=== PATIENT | female | born 1990 | race Caucasian/White ===

== ENCOUNTER 2024-03-02 21:01 | Inpatient (IN) | payer BC, SELFPAY ==
[2024-03-02 16:36] VITALS: BP 123/78
[2024-03-02 16:46] LABS: % Basophils 0.3 % (0-2); % Eosinophils 0.6 % (0-6); % Immature Granulocytes 0.3 % (0-0.5); % Lymphocytes 10.2 % (20.5-51.1); % Monocytes 4.2 % (1.7-9.3); % Neutrophils 84.4 % (42.2-75.2); Absolute Eosinophils 0.1 10^3/uL (0-0.7); Absolute Lymphocytes 1.1 10^3/uL (1.2-3.4); Absolute Monocytes 0.4 10^3/uL (0.1-0.6); Absolute Neutrophils 8.8 10^3/uL (1.4-6.5); Hematocrit 42.8 % (37.0-47.0); Hemoglobin 14.4 g/dL (12.0-16.0); Mean Corp Hgb Conc. 33.6 g/dL (33.0-37.0); Mean Corpuscular Volume 86.1 fL (81.0-99.0); Mean Platelet Volume 10.5 fL (7.4-10.4); Nucleated Red Blood Cells % 0 %; Platelet Count 253 10^3/uL (130-400); Red Blood Cell Count 4.97 10^6/uL (4.20-5.40); Red Cell Dist. Width 13.2 % (11.5-14.5); White Blood Cell Count 10.4 10^3/uL (4.8-10.8)
[2024-03-02 16:53] LABS: HCG, Serum Qualitative Screen Negative
[2024-03-02 17:03] LABS: Troponin I < 0.012 ng/ml
[2024-03-02 17:10] LABS: ALT (SGPT) 732 U/L (0-35); AST (SGOT) 763 U/L (14-36); Albumin 4.7 g/dl (3.5-5.0); Alkaline Phosphatase 162 U/L (38-126); Blood Urea Nitrogen 13 mg/dl (7-17); Calcium 9.3 mg/dl (8.4-10.2); Carbon Dioxide 20 mmol/L (22-30); Chloride 106 mmol/L (98-107); Glucose 119 mg/dl (70-99); Potassium 4.1 mmol/L (3.5-5.1); Sodium 138 mmol/L (135-145); Total Bilirubin 3.2 mg/dl (0.2-1.3); Total Protein 7.7 g/dl (6.3-8.2); eGFR > 60.00
--- NOTE | 2024-03-02 17:26 | ED.GENMED ---
History of Present Illness
<Lavinia Nam PA-C - Last Filed: 03/03/24 10:02>
General
Chief Complaint: Abdominal Symptoms
Source: patient
Time Seen by Provider: 03/02/24 17:15
History of Present Illness
History of Present Illness:
33yoF with no significant past medical history presenting for evaluation of abdominal pain. Patient started with mid back pain yesterday. She was seen by her chiropractor around 3 PM this afternoon. Shortly after going to the chiropractor, her
pain began to radiate to her anterior abdomen. Pain is worse in the epigastric region. She is also having some bilateral rib pain. She reports nausea and had 3 episodes of vomiting prior to arrival. She has had similar pains in the past but none
that have been this severe. No fevers. No previous abdominal surgeries.
Past History
<Lavinia Nam PA-C - Last Filed: 03/03/24 10:02>
Past History
ED Past Medical History: None
ED Past Surgical History: None
Social History
Tobacco: Former smoker
Alcohol: Occasional
Personal:
Living: with family
Phy Exam
<Lavinia Nam PA-C - Last Filed: 03/03/24 10:02>
General Physical Exam
General Presentation: well appearing and no apparent distress
General age: appears stated age
General Skin: warm and dry
General Habitus: normal
General Mental: alert
ENT Exam
ENT Exam: normocephalic
Cardiovascular Exam
Cardiovascular Exam: regular rate/rhythm and no murmur
Pulmonary Exam
Pulmonary Exam: lungs clear, no respiratory distress, no rales, no crackles and no rhonchi
Gastrointestinal Exam
Gastrointestinal Exam: soft, non distended and other (+Tenderness in epigastric and LUQ regions. No guarding or rebound tenderness. )
Neurological Exam
Neurological Exam: alert
[place] Coma Scale
Eye Opening: Spontaneous
Verbal Response: Oriented
Motor Response: Obeys Commands
GCS Total Score: 15
Skin Exam
Skin Exam: normal color and warm/dry
Psychiatric Exam
Psychiatric Exam: normal mood/affect
<Pablo Elizabeth PA-C - Last Filed: 03/02/24 20:07>
[place] Coma Scale
GCS Total Score: 15
Course
<Lavinia Nam PA-C - Last Filed: 03/03/24 10:02>
Orders/Labs/Results
Orders:
Orders
03/02/24 15:52
EKG [Electrocardiogram (*1)] Urgent
Reason for Study: Chest Pain
EKG- Treatment ONCE
03/02/24 16:16
Test Result ONCE
03/02/24 16:30
Complete Blood Count/With Diff Urgent
Comprehensive Metabolic Panel Urgent
HCG, Serum Qualitative Screen Urgent
Iron Urgent
Comment: ADD ON
Lipase Urgent
Magnesium Urgent
Comment: ADD ON
Total Iron Binding Urgent
Comment: ADD ON
Transferrin [S] Urgent
Comment: ADD ON
Triglycerides Urgent
Comment: ADD ON
Troponin I Urgent
03/02/24 17:22
CT Abd/pelvis W Iv Cont Urgent
Comment:
Reason For Exam: Epigastric pain, transaminitis
03/02/24 17:24
0.9% Sodium Chloride 1000 ml [Nss] 1,000 ml IV BOLUS
HYDROmorphone [Dilaudid] 0.5 mg IV NOW STA
Ondansetron Injectable [Zofran] 4 mg IV NOW STA
03/02/24 18:55
HYDROmorphone [Dilaudid] 0.5 mg IV NOW STA
03/02/24 20:32
Add On- LAB Routine
Tests Added?: Iron, TIBC, Iron % saturation, Transferrin
03/02/24 20:34
Add On- LAB Routine
Tests Added?: triglycerides
03/02/24 20:40
Admit/Transfer Patient As Directed
Co-Sign Provider:
Level of Care: Inpatient admission
Assign to:: Telemetry
Physician / Group: Marci Graf
Diagnosis: Acute Pancreatitis
Reason for Telemetry: Chest Pain syndromes
Date to Stop Telemetry: 03/04/24
Time to Stop Telemetry: 11:00
Reason for Hospitalization: Acute Pancreatitis
Expected length of stay greater than two midnights?: Yes
ELOS- Estimated Length of Stay in days: 3
I certify the patient meets the requirements for IP care: Yes
0.9% Sodium Chloride 500 ml [Nss] 500 ml IV BOLUS
03/02/24 20:41
Add On- LAB Routine
Tests Added?: Magnesium
Code Status As Directed
Resuscitation Status: Full Code
PRN Pain Medication Management As Directed
May give lesser potent ordered pain med per pt: Yes
preference::
Protocol:: Medication orders for pain may be administered in a
manner that supports deferring to patient preference
when the pt is:
- Requesting an ordered lesser potent pain medication.
Least to most potent pain medications are defined
as: acetaminophen < NSAID < tramadol < opioids
(morphine, oxycodone, hydromorphone).
- Requesting a lesser dose of the same medication IF
ORDERED.
- Requesting a less intrusive route of administration
if both routes are prescribed by the provider (PO <
IV).
03/02/24 21:26
0.9% Sodium Chloride 1000 ml [Nss] 1,000 ml IV 150 mls/hr
Acetaminophen [Tylenol] 650 mg PO Q4HPRN PRN
HYDROmorphone [Dilaudid] 0.5 mg IV Q3HPRN PRN
03/02/24 21:26
GASTROINTESTINAL CONSULT Routine
Consulting Provider: Spike Nagy
Was physician already notified: Yes
Activity As Directed
Activity Level: As Tolerated
Vital Signs As Directed
Frequency: Per unit guidelines
DX Deep Vein Thrombosis Video Routine
03/03/24 05:18
Complete Blood Count/With Diff IN AM
Comprehensive Metabolic Panel IN AM
Magnesium IN AM
03/03/24 Breakfast
NPO
Allow oral meds: Yes
Allow clear liquids: No
MR Abdomen Without Contrast IN AM
Comment: MRCP
Reason For Exam: elevated liver enzymes, pancreatitis
Recent pill cam endoscopy?: No
03/03/24 18:00
Enoxaparin Sodium [Lovenox] 40 mg SC QPM
03/04/24 11:00
DC Protocol for Telemetry ONCE
Abnormal Lab Results
03/02/24
16:30
MPV 10.5 H fL
(7.4-10.4)
Absolute Neuts (auto) 8.8 H 10^3/uL
(1.4-6.5)
Absolute Lymphs (auto) 1.1 L 10^3/uL
(1.2-3.4)
Neutrophils % 84.4 H %
(42.2-75.2)
Lymphocytes % 10.2 L %
(20.5-51.1)
Carbon Dioxide 20 L mmol/L
(22-30)
Glucose 119 H mg/dl
(70-99)
Iron 177 H ug/dl
(37-170)
% Saturation 56 H %
(20-50)
Total Bilirubin 3.2 H mg/dl
(0.2-1.3)
AST 763 H* U/L
(14-36)
ALT 732 H* U/L
(0-35)
Alkaline Phosphatase 162 H U/L
(38-126)
Lipase > 4000 H* U/L
(23-300)
03/02/24 16:30
03/02/24 16:30
Vital Signs
Initial and Last Documented VS:
Initial Vital Signs
Temp Pulse Resp Pulse Ox
97.6 F 100 18 98
03/02/24 16:11 03/02/24 16:11 03/02/24 16:11 03/02/24 16:11
Last Documented Vital Signs
Temp Pulse Resp BP Pulse Ox
98.3 F 96 17 119/77 95
03/03/24 07:55 03/03/24 07:55 03/03/24 07:55 03/03/24 07:55 03/03/24 07:55
<Pablo Elizabeth PA-C - Last Filed: 03/02/24 20:07>
Orders/Labs/Results
Orders:
Orders
03/02/24 15:52
EKG [Electrocardiogram (*1)] Urgent
Reason for Study: Chest Pain
EKG- Treatment ONCE
03/02/24 16:16
Test Result ONCE
03/02/24 16:30
Complete Blood Count/With Diff Urgent
Comprehensive Metabolic Panel Urgent
HCG, Serum Qualitative Screen Urgent
Iron Urgent
Comment: ADD ON
Lipase Urgent
Magnesium Urgent
Comment: ADD ON
Total Iron Binding Urgent
Comment: ADD ON
Transferrin [S] Urgent
Comment: ADD ON
Triglycerides Urgent
Comment: ADD ON
Troponin I Urgent
03/02/24 17:22
CT Abd/pelvis W Iv Cont Urgent
Comment:
Reason For Exam: Epigastric pain, transaminitis
03/02/24 17:24
0.9% Sodium Chloride 1000 ml [Nss] 1,000 ml IV BOLUS
HYDROmorphone [Dilaudid] 0.5 mg IV NOW STA
Ondansetron Injectable [Zofran] 4 mg IV NOW STA
03/02/24 18:55
HYDROmorphone [Dilaudid] 0.5 mg IV NOW STA
03/02/24 20:32
Add On- LAB Routine
Tests Added?: Iron, TIBC, Iron % saturation, Transferrin
03/02/24 20:34
Add On- LAB Routine
Tests Added?: triglycerides
03/02/24 20:40
Admit/Transfer Patient As Directed
Co-Sign Provider:
Level of Care: Inpatient admission
Assign to:: Telemetry
Physician / Group: Marci Graf
Diagnosis: Acute Pancreatitis
Reason for Telemetry: Chest Pain syndromes
Date to Stop Telemetry: 03/04/24
Time to Stop Telemetry: 11:00
Reason for Hospitalization: Acute Pancreatitis
Expected length of stay greater than two midnights?: Yes
ELOS- Estimated Length of Stay in days: 3
I certify the patient meets the requirements for IP care: Yes
0.9% Sodium Chloride 500 ml [Nss] 500 ml IV BOLUS
03/02/24 20:41
Add On- LAB Routine
Tests Added?: Magnesium
Code Status As Directed
Resuscitation Status: Full Code
PRN Pain Medication Management As Directed
May give lesser potent ordered pain med per pt: Yes
preference::
Protocol:: Medication orders for pain may be administered in a
manner that supports deferring to patient preference
when the pt is:
- Requesting an ordered lesser potent pain medication.
Least to most potent pain medications are defined
as: acetaminophen < NSAID < tramadol < opioids
(morphine, oxycodone, hydromorphone).
- Requesting a lesser dose of the same medication IF
ORDERED.
- Requesting a less intrusive route of administration
if both routes are prescribed by the provider (PO <
IV).
03/02/24 21:26
0.9% Sodium Chloride 1000 ml [Nss] 1,000 ml IV 150 mls/hr
Acetaminophen [Tylenol] 650 mg PO Q4HPRN PRN
HYDROmorphone [Dilaudid] 0.5 mg IV Q3HPRN PRN
03/02/24 21:26
GASTROINTESTINAL CONSULT Routine
Consulting Provider: Spike Nagy
Was physician already notified: Yes
Activity As Directed
Activity Level: As Tolerated
Vital Signs As Directed
Frequency: Per unit guidelines
DX Deep Vein Thrombosis Video Routine
03/03/24 05:18
Complete Blood Count/With Diff IN AM
Comprehensive Metabolic Panel IN AM
Magnesium IN AM
03/03/24 Breakfast
NPO
Allow oral meds: Yes
Allow clear liquids: No
MR Abdomen Without Contrast IN AM
Comment: MRCP
Reason For Exam: elevated liver enzymes, pancreatitis
Recent pill cam endoscopy?: No
03/03/24 18:00
Enoxaparin Sodium [Lovenox] 40 mg SC QPM
03/04/24 11:00
DC Protocol for Telemetry ONCE
Abnormal Lab Results
03/02/24
16:30
MPV 10.5 H fL
(7.4-10.4)
Absolute Neuts (auto) 8.8 H 10^3/uL
(1.4-6.5)
Absolute Lymphs (auto) 1.1 L 10^3/uL
(1.2-3.4)
Neutrophils % 84.4 H %
(42.2-75.2)
Lymphocytes % 10.2 L %
(20.5-51.1)
Carbon Dioxide 20 L mmol/L
(22-30)
Glucose 119 H mg/dl
(70-99)
Iron 177 H ug/dl
(37-170)
% Saturation 56 H %
(20-50)
Total Bilirubin 3.2 H mg/dl
(0.2-1.3)
AST 763 H* U/L
(14-36)
ALT 732 H* U/L
(0-35)
Alkaline Phosphatase 162 H U/L
(38-126)
Lipase > 4000 H* U/L
(23-300)
03/02/24 16:30
03/02/24 16:30
Vital Signs
Initial and Last Documented VS:
Initial Vital Signs
Temp Pulse Resp Pulse Ox
97.6 F 100 18 98
03/02/24 16:11 03/02/24 16:11 03/02/24 16:11 03/02/24 16:11
Last Documented Vital Signs
Temp Pulse Resp BP Pulse Ox
98.3 F 96 17 119/77 95
03/03/24 07:55 03/03/24 07:55 03/03/24 07:55 03/03/24 07:55 03/03/24 07:55
Anthonylt;Lavinia Nam PA-C - Last Filed: 03/03/24 10:02>
MDM/Problems Addressed
Differential Diagnosis Includes:
33yoF here with abd pain. Started with mid back pain yesterday. Now with anterior abd pain x 2 hours since going to the chiropractor. +N/V. She is afebrile and hemodynamically stable. She appears uncomfortable but is nontoxic. No signs of
peritonitis on abdominal exam. Differential diagnosis includes but is not limited to: Pancreatitis, biliary colic, cholecystitis, choledocholithiasis, PUD
Initial ED plan: Abdominal labs and troponin/EKG obtained in triage. Lipase greater than 4000. AST 763, ALT 732, and T. bili 3.2. High suspicion for gallstone pancreatitis. Will obtain CT abdomen. IV Dilaudid and fluid bolus for symptoms.
<Lavinia Nam PA-C - Last Filed: 03/03/24 10:02>
*EKG
Interpreted by ED Provider?: Yes
EKG Intrepretation Date: 03/02/24
Heart Rate: 100
Rate: normal
Rhythm: sinus
Senoia: normal axis
Interval: normal interval
QRS Pattern: normal QRS
Ischemia: no ischemia
<Pablo Elizabeth PA-C - Last Filed: 03/02/24 20:07>
*Critical Care Note
Total Time (30-74mins, 75-104mins- exclusive of procedures): Not Applicable
<Pablo Elizabeth PA-C - Last Filed: 03/02/24 20:07>
Update Note
Update Note:
Assumed care of patient pending CT of abdomen. CT demonstrates pancreatitis with small amount of fluid around the gallbladder likely reactive from the pancreatitis. Labs reviewed with lipase more than 4000 and elevated LFTs. Reexamined patient.
She just received some pain medicine and is feeling slightly improved. Will admit to hospital for pancreatitis possible gallstone pancreatitis
ED Attending Note
<Lavinia Nam PA-C - Last Filed: 03/03/24 10:02>
-
Portions of this chart may have been created with voice recognition software.� Occasional wrong word or��sound alike� substitutions may have occurred due to the inherent limitations of voice recognition software.
Discharge Plan
Departure
Patient Disposition: Admit
Date of Disposition: 03/02/24
Time of Disposition: 20:06
Admit to: Med/Surg
Presentation/result/management discussed w/ accepting MD/DO: Hospitalist
Discharge Problem:
Pancreatitis
Interventions
Interventions:
*Risk Screen - Suicide Last Done: 03/02/24 16:11
*General Assessment Last Done: 03/02/24 16:11
*Neglect/Abuse Screening Last Done: 03/02/24 16:11
ED- Fall Risk Assessment Last Done: 03/02/24 16:37
*ED COVID-19 Vaccine History Last Done: 03/02/24 16:11
*Nursing Disposition Last Done: 03/02/24 21:28
NQ-Ddrwow-Vzthwibqei Assessment Last Done: 03/02/24 16:37
Discharge Date and Time
Discharge Date/Time: 03/02/24 21:30
[2024-03-02] MEDS: NSS 1000 IV ×2 (17:32→22:00)
[2024-03-02] MEDS: ZOFRAN 4 MG IV (17:32)
[2024-03-02] MEDS: DILAUDID 0.5 MG IV ×3 (17:32→23:38)
[2024-03-02 17:59] LABS: Lipase > 4000 U/L (23-300)
[2024-03-02 20:00] VITALS: BP 116/76
--- NOTE | 2024-03-02 20:18 | HPS.HSE ---
Family Physician
-
Family Physician: NOT KNOW UNKNOWN - PT DOES
Chief Complaint
-
abdominal pain
History of Present Illness
Ms. Paulina Smith is a 33 yo woman without significant history who is presenting to the ER for evaluation of abdominal pain.
Patient states that over past year she has intermittent back pain that sometimes radiates to abdomen/ribs. It is not associated with eating. Today she saw her Chiropractor who performed manipulation including massage gun to mid-epigastric region.
Patient states post appointment she had significant pain. She vomited several times and decided to come to the ER.
No fevers/chills. No chest pain. Intermittent shortness of breath with pain, pain with deep breaths. No new rash, no LE swelling.
No smoking and denies significant alcohol use.
Medical History
Past Medical History
Past Medical History: Reports None
Past Surgical History: Reports None
Social History
Tobacco: Non-smoker
Alcohol: Occasional
Family History
Family History: Not pertinent
Allergies / Home Medications
Allergies reflects when Allergies were last updated in [employer] [facility].
Home Medications with original date entered in [employer] [facility]
Allergy/Medication List:
Allergies
Allergy/AdvReac Type Severity Reaction Status Date / Time
No Known Drug Allergies Allergy Unknown Verified 03/02/24 16:15
Home Medications
No Meds [No Current Medications] 03/02/24
Review of Systems
-
History Source: Patient
A 12 point ROS was completed and negative except as noted: Yes
Physical Exam
Vital Signs
Vital Signs
Temp Pulse Resp BP Pulse Ox
97.6 F 89 16 123/78 100
03/02/24 16:11 03/02/24 16:36 03/02/24 18:00 03/02/24 16:36 03/02/24 16:36
Physical Exam
General: No Apparent Distress and Conversant
HEENT: PERRLA
Respiratory: Clear; No Wheezes
Cardiac: S1/S2 and Regular Rhythm
GI: Other (tenderness to palpation, mid-epigastric region, non-distended )
Musculoskeletal: No Edema
Skin: Warm and Dry; No Rash
Neuro: AO x 3
Psych: Calm
Laboratory Results
-
03/02/24 16:30
03/02/24 16:30
Laboratory Results
Total Bilirubin 3.2 mg/dl (0.2-1.3) H 03/02/24 16:30
AST 763 U/L (14-36) H* 03/02/24 16:30
ALT 732 U/L (0-35) H* 03/02/24 16:30
Alkaline Phosphatase 162 U/L (38-126) H 03/02/24 16:30
Troponin I < 0.012 ng/ml 03/02/24 16:30
Lipase > 4000 U/L (23-300) H* 03/02/24 16:30
Data Reviewed
-
Diagnostic Radiology: Report Reviewed by me
Lab Data: Labs Reviewed by me
Impression/Plan
-
Ms. Paulina Smith is a 33 yo woman without significant history who is presenting to the ER for evaluation of abdominal pain.
Triage VS: T 97.6, P 100,RR 18, SpO2 98%
LABS: WBC 10.4, Hg 14.1, PLT 253, Na 138, K+ 4.1, Cl 106, CO2 20, Creatinine 0.7, Glucose 119, T. Bili 3.2, AST 763, ALT 732, Alk Phos 162, Trop neg, Lipase > [address]: IMPRESSION:
Pancreatitis
Bile Ducts: no bile duct dilatation
MAR: IV Dilaudid 0.5mg x 2, NS 1L, IV Zofran 4mg IV x 1
Acute Pancreatitis
Elevated Liver Enzymes
-although liver enzymes elevated, liver and biliary ducts normal on CT. patient reports massage gun to epigastric area right before onset of symptoms, but doubt massage gun can cause traumatic pancreatitis?
-admit to telemetry
-IVF
-NPO
-pain control
-GI consult
-MRI/MRCP tomorrow AM
Family Hx Hemochromatosis - strong
-follow up iron studies
DVT PPx: Lovenox subQ
FULL CODE
[2024-03-02 20:46] LABS: Triglycerides 147 mg/dl (10-149)
[2024-03-02 20:54] LABS: Iron 177 ug/dl (37-170)
[2024-03-02] MEDS: NSS 500 IV (20:57)
[2024-03-02 21:03] LABS: Percent Saturation 56 % (20-50); Total Iron Binding Capacity 315 ug/dl (265-497)
[2024-03-02 21:10] LABS: Magnesium 2.1 mg/dl (1.6-2.3)
[2024-03-02 21:48] VITALS: BP 131/85; BMI 38.5
--- NOTE | 2024-03-02 22:00 | PTCARENOTE ---
Received patient from ED via stretcher, Telemetry order> NSR on the monitor, afebrile, HR 85, RR 16, BP 131/85, pox 99% room air. No c/o pain- IV Dilaudid administer x2 in ED. Patient AAOx3. PMH reviewed by this RN and patient. Plan of care
discussed. Patient ordered MRI/MRCP in the morning. Call jeffrey within reach.
[2024-03-02 23:56] VITALS: BP 111/63
[2024-03-03 03:49] VITALS: BP 136/73
[2024-03-03] MEDS: NSS 1000 IV (04:04)
[2024-03-03 05:37] LABS: % Basophils 0.2 % (0-2); % Eosinophils 0.6 % (0-6); % Immature Granulocytes 0.4 % (0-0.5); % Lymphocytes 12.7 % (20.5-51.1); % Monocytes 4.4 % (1.7-9.3); % Neutrophils 81.7 % (42.2-75.2); Absolute Eosinophils 0.1 10^3/uL (0-0.7); Absolute Lymphocytes 1.3 10^3/uL (1.2-3.4); Absolute Monocytes 0.4 10^3/uL (0.1-0.6); Absolute Neutrophils 8.2 10^3/uL (1.4-6.5); Hematocrit 36.3 % (37.0-47.0); Hemoglobin 12.1 g/dL (12.0-16.0); Mean Corp Hgb Conc. 33.3 g/dL (33.0-37.0); Mean Corpuscular Hgb 28.9 pg (27.0-31.0); Mean Corpuscular Volume 86.8 fL (81.0-99.0); Mean Platelet Volume 10.2 fL (7.4-10.4); Nucleated Red Blood Cells % 0 %; Platelet Count 212 10^3/uL (130-400); Red Blood Cell Count 4.18 10^6/uL (4.20-5.40); Red Cell Dist. Width 13.6 % (11.5-14.5)
[2024-03-03 06:10] LABS: ALT (SGPT) 541 U/L (0-35); AST (SGOT) 331 U/L (14-36); Albumin 3.5 g/dl (3.5-5.0); Alkaline Phosphatase 159 U/L (38-126); Blood Urea Nitrogen 10 mg/dl (7-17); Carbon Dioxide 21 mmol/L (22-30); Chloride 108 mmol/L (98-107); Estimated Creatinine Clearance > 125 ml/min; Glucose 92 mg/dl (70-99); Potassium 4.1 mmol/L (3.5-5.1); Sodium 137 mmol/L (135-145); Total Bilirubin 1.3 mg/dl (0.2-1.3); Total Protein 6.1 g/dl (6.3-8.2); eGFR > 60.00
--- NOTE | 2024-03-03 06:37 | CON.GI ---
Addendum entered and electronically signed by Spike Nagy MD 03/03/24 16:20:
I saw and examined the patient.
The SPECIAL EDUCATION PRESCHOOL TEACHER or PA's note was reviewed and I agree with the note.
Comment: 33yo female presents with 1 day severe sudden onset epigastric pain. She had back pain before this episode and was seen chiropractor yesterday, and used massage gun on epigastric area. Lipase 4000, and LFTs elevated AST 763, ALT 732, TB
3.2. CRP 24. She denies EtOH. She has been taking motrin several times daily for her back pain. CT shows pancreatitis. MRCP also shows severe pancreatitis with severe edema, peripancreatic edema and fluid, extensive cholelithiasis but no CBD
stone.
REC:
Aggressive IVF
She is feeling better and wants to try clears for dinner
Follow up labs
Could be passed gallstone in CBD
Add on ASHISH, IgG4 for completeness
Will follow
Original Note:
Consultation
-
Date/Time Consultation Requested: 03/02/242119
Date/Time Consultation Performed: 03/03/24 0700
Requesting Provider: Marci Graf MD
Performing Provider: ZEHRA Dinero, Spike Nagy MD
Reason for Consultation: pancreatitis
Medical History
Chief Complaint / HPI
Chief Complaint: abdominal pain
History of Present Illness:
Pt is a 33yo with admission with gestational diabetes with vaginal childbirth in 2022. She admits to intermittent mild abd/back pain since that time with PRN Motrin use. She was in ER 11/2022 with similar pain with CT noted constipation and non
obstructing renal calculi and normal LFT's at that time. She admits on 03/02 she had followup with chiropractor for continued back pain and some muscle gun to abdominal pain with onset of severe pain after treatment. On admission noted with bili
3.2, AST 763, alt 732 alk phos 162 and lipase >4000. TG normal at [address] completed with concern for pancreatitis with small amount of fluid adjacent to gallbladder no duct dilatation.
Pt admits to some wt loss with now some gain. She also has occasional TRISTIN with Pepcid use as needed. She had nausea/vomiting prior to admission but denies hematemesis, diarrhea, constipation or rectal bleeding. No prior
EGD/colonoscopy in past. Denies ETOH use. No chronic meds just Pepcid and Motrin PRN use.
Past Medical History
Past Medical History: Other (gestational diabetes )
Social History
Tobacco: Non-Smoker
Alcohol: None
Drug: None
Personal:
Living: With Family
Employment: Employed
Family History
Family History: Other (mother with hx hemochromatosis )
Allergies / Home Medications
Allergy/AdvReac Type Severity Reaction Status Date / Time
No Known Drug Allergies Allergy Unknown Verified 03/02/24 16:15
�Medication �Instructions �Recorded
No Meds [No Current Medications] 03/02/24
Review of Systems
-
History Source: Patient
Constitutional: Reports Weight Gain, Weight Loss (with 2022 then gain) and Other (sweats )
EENT: Reports No Symptoms
Respiratory: Reports No Symptoms
Cardiac: Reports No Symptoms
Abdomen/GI: Reports Abdominal Pain, Nausea and Vomiting
: Reports No Symptoms
Musculoskeletal: Reports Other (back pain )
Skin: Reports No Symptoms
Neurological: Reports No Symptoms
Endocrine: Reports No Symptoms
Hematologic/Lymphatic: Reports No Symptoms
Vital Signs
Temp Pulse Resp BP Pulse Ox
98.2 F 83 16 136/73 97
03/03/24 03:49 03/03/24 03:49 03/03/24 03:49 03/03/24 03:49 03/03/24 03:49
Physical Exam
Exam
General: Well Developed, Well Nourished and No Apparent Distress
HEENT: Normocephalic, Anicteric and Moist Mucous Membranes
Respiratory: Clear
Cardiac: Regular Rhythm
GI: Soft, Non Distended and Tender (epigastric pain )
Musculoskeletal: No Clubbing and No Cyanosis
Skin: Warm and Dry
Neuro: Awake, Alert and AO x 3
Psych: Calm
Results
WBC 10.0 10^3/uL (4.8-10.8) 03/03/24 05:18
Hgb 12.1 g/dL (12.0-16.0) 03/03/24 05:18
Hct 36.3 % (37.0-47.0) L 03/03/24 05:18
MCV 86.8 fL (81.0-99.0) 03/03/24 05:18
Plt Count 212 10^3/uL (130-400) 03/03/24 05:18
Absolute Neuts (auto) 8.2 10^3/uL (1.4-6.5) H 03/03/24 05:18
Sodium 137 mmol/L (135-145) 03/03/24 05:18
Potassium 4.1 mmol/L (3.5-5.1) 03/03/24 05:18
Chloride 108 mmol/L (98-107) H 03/03/24 05:18
Carbon Dioxide 21 mmol/L (22-30) L 03/03/24 05:18
BUN 10 mg/dl (7-17) 03/03/24 05:18
Creatinine 0.6 mg/dL (0.6-1.0) 03/03/24 05:18
Calcium 8.0 mg/dl (8.4-10.2) L 03/03/24 05:18
Total Bilirubin 1.3 mg/dl (0.2-1.3) D 03/03/24 05:18
AST 331 U/L (14-36) H 03/03/24 05:18
ALT 541 U/L (0-35) H* 03/03/24 05:18
Alkaline Phosphatase 159 U/L (38-126) H 03/03/24 05:18
Lipase > 4000 U/L (23-300) H* 03/02/24 16:30
Diagnostic Image Results:
03/02/24 CT Abd/pelvis W Iv Cont
Pancreatitis.
11/2022 CT Abd/pel Without Iv Or Oral
There is a large amount of feces throughout colon suggesting possible constipation
There is a 1.5 mm nonobstructing right renal calculus
There are no obstructing renal or ureteral calculi.
There is no hydronephrosis or hydroureter.
Prior GI Procedures:
EGD: none
Colonoscopy: none
Assessment / Plan
-
Pt is a 33yo with admission with gestational diabetes with vaginal childbirth in 2022. She admits to intermittent mild abd/back pain since that time with PRN Motrin use. She was in ER 11/2022 with similar pain with CT noted constipation and non
obstructing renal calculi and normal LFT's at that time. She admits on 03/02 she had followup with chiropractor for continued back pain and some muscle gun to abdominal pain with onset of severe pain after treatment. On admission noted with bili
3.2, AST 763, alt 732 alk phos 162 and lipase >4000. CT completed with concern for pancreatitis with small amount of fluid adjacent to gallbladder no duct dilatation. Denies ETOH use. No chronic meds just Pepcid and Motrin PRN use.
-pancreatitis - first episode
-elevated LFT's
-family hx hemochromatosis
PLAN:
Etiology of symptoms related to pancreatitis secondary to gallstone disease vs other, TG normal 147 on admission
await MRCP
trend labs- some improvement today
add CRP
if MRI need consider IGG4 testing
if + stone then will need ERCP and surgical eval
cont aggressive IVF will change to LR at 200ml/hr
pain control
OP testing for hemochromatosis given family hx iron 177, TIBC 315, iron sat 56, transferritin pending-- pt educated on disease process
will follow
-
-
Thank you for consultation and allowing me to participate in the patient's care. Please call the refrigeration mechanic helper GI physician during the after hours with any questions or concerns.
[2024-03-03 07:55] VITALS: BP 119/77
--- NOTE | 2024-03-03 09:04 | W.PN.HOSP.TC ---
Today's Communication/Plan
-
IV fluids. Pain control. MRCP
Assessment / Plan
Assessment / Plan
Physical exam:
General: Well Developed, Well Nourished and No Apparent Distress
HEENT: Normocephalic, Atraumatic and Moist Mucous Membranes
Respiratory: Clear to Auscultation; Negative Wheezes, Rales or Rhonchi
Cardiac: Regular Rhythm and S1/S2
GI: Soft, Tender and Nondistended
Musculoskeletal: No Clubbing, No Cyanosis and No Edema
Neuro: Awake, Alert and Oriented
Psych: Calm
A/P:
Acute pancreatitis:
Workup in progress for etiology
Continue n.p.o.
Continue IV fluid
Pain control
GI consult appreciated
MRCP pending
Workup for hemochromatosis:
Check ferritin level
Outpatient genetic testing
DVT PPx: Lovenox subQ
FULL CODE
Anticipated Discharge: Within 24 hours
Subjective/Interval History
-
Date of Service: March 03, 2024
Patient still having abdominal pain but better. No nausea or vomiting. Afebrile
Objective Data
-
Labs:
Laboratory Results
03/03/24
05:18
WBC 10.0
Hgb 12.1
Hct 36.3 L
Plt Count 212
Sodium 137
Potassium 4.1
Chloride 108 H
Carbon Dioxide 21 L
BUN 10
Creatinine 0.6
Glucose 92
Calcium 8.0 L
Total Bilirubin 1.3 D
AST 331 H
ALT 541 H*
Alkaline Phosphatase 159 H
Vital Signs:
Vital Signs
Temp Pulse Resp BP Pulse Ox
98.3 F 96 17 119/77 95
03/03/24 07:55 03/03/24 07:55 03/03/24 07:55 03/03/24 07:55 03/03/24 07:55
I&O
03/02/24 03/03/24 03/04/24
06:59 06:59 06:59
Intake Total 1350 / 1350
Balance 1350 / 1350
[2024-03-03 11:05] VITALS: BP 113/73
[2024-03-03] MEDS: LR 1000 IV ×3 (11:55→21:16)
[2024-03-03 14:39] VITALS: BP 113/71
[2024-03-03] MEDS: LOVENOX 40 MG SC (17:16)
--- NOTE | 2024-03-03 17:34 | CM ---
Alert awake oriented patient who lives with her Stevo and dgt Reina who lives in a 2 story home with 3 steps to enter and 3 to bed bathroom. She is independent in driving and in all activities of daily living.Offered VN she declined.
No adaptive devices
Never had VN/SNF
Pharmacy [facility] [place]
PCP none pt said she will call insurance and ask available Md in her area Offered list she declined
PLAN Home no needs
[2024-03-03 19:00] VITALS: BP 137/83
[2024-03-03] MEDS: TYLENOL 650 MG PO (21:19)
[2024-03-03 23:00] VITALS: BP 132/69
[2024-03-04 03:00] VITALS: BP 117/65
[2024-03-04] MEDS: LR 1000 IV ×2 (04:44→09:17)
[2024-03-04 07:00] VITALS: BP 129/81
[2024-03-04 07:46] LABS: Hematocrit 37.3 % (37.0-47.0); Hemoglobin 12.4 g/dL (12.0-16.0); Mean Corp Hgb Conc. 33.2 g/dL (33.0-37.0); Mean Corpuscular Hgb 28.8 pg (27.0-31.0); Mean Corpuscular Volume 86.5 fL (81.0-99.0); Mean Platelet Volume 10.1 fL (7.4-10.4); Platelet Count 238 10^3/uL (130-400); Red Blood Cell Count 4.31 10^6/uL (4.20-5.40); Red Cell Dist. Width 13.3 % (11.5-14.5); White Blood Cell Count 9.7 10^3/uL (4.8-10.8)
[2024-03-04 07:59] LABS: ALT (SGPT) 368 U/L (0-35); AST (SGOT) 102 U/L (14-36); Alkaline Phosphatase 150 U/L (38-126); Blood Urea Nitrogen 6 mg/dl (7-17); Calcium 8.8 mg/dl (8.4-10.2); Carbon Dioxide 24 mmol/L (22-30); Chloride 104 mmol/L (98-107); Estimated Creatinine Clearance > 125 ml/min; Glucose 89 mg/dl (70-99); Lipase 621 U/L (23-300); Potassium 3.9 mmol/L (3.5-5.1); Sodium 138 mmol/L (135-145); Total Bilirubin 0.8 mg/dl (0.2-1.3); Total Protein 6.8 g/dl (6.3-8.2); eGFR > 60.00
--- NOTE | 2024-03-04 09:40 | W.PN.GI.CBS2 ---
Today's Communication / Plan
-
Please see assessment and plan for details.
Assessment / Plan
-
1. Pancreatitis: Likely secondary to gallstones, likely spontaneously passed CBD stone with brisk improvement in symptoms and labs, now feeling much better with again much improved labs and symptoms, no significant tenderness on exam. At this
point we will decrease IV fluids, advance to low-fat diet. Surgery has been consulted for eventual cholecystectomy.
Subjective
Subjective
Date of Service: March 04, 2024
Patient feeling much better overall, minimal discomfort, no vomiting, tolerating liquids without difficulty, no fever or chills.
Objective
Data Reviewed
Laboratory Data:
Laboratory Results
03/04/24 07:12
03/04/24 07:12
Laboratory Results
Magnesium 2.0 mg/dl (1.6-2.3) 03/03/24 05:18
Total Bilirubin 0.8 mg/dl (0.2-1.3) 03/04/24 07:12
AST 102 U/L (14-36) H 03/04/24 07:12
ALT 368 U/L (0-35) H 03/04/24 07:12
Alkaline Phosphatase 150 U/L (38-126) H 03/04/24 07:12
Lipase 621 U/L (23-300) H 03/04/24 07:12
Vital Signs and I&O:
Vital Signs
Temp Pulse Resp BP Pulse Ox
98 F 94 16 129/81 96
03/04/24 07:00 03/04/24 07:00 03/04/24 07:00 03/04/24 07:00 03/04/24 07:00
I&O
03/03/24 03/04/24 03/05/24
06:59 06:59 06:59
Intake Total 1350 / 1350 0 / 0
Balance 1350 / 1350 0 / 0
Physical Exam
Physical Exam
General: NAD
Abdomen: normal bowel sounds, soft, no tenderness, no masses or bruits, no ascites
[2024-03-04 09:43] LABS: Ferritin 60.7 ng/ml (6.24-137)
--- NOTE | 2024-03-04 09:54 | W.PN.HOSP.TC ---
Today's Communication/Plan
-
Discharge planning today
Assessment / Plan
Assessment / Plan
Physical exam:
General: Well Developed, Well Nourished and No Apparent Distress
HEENT: Normocephalic, Atraumatic and Moist Mucous Membranes
Respiratory: Clear to Auscultation; Negative Wheezes, Rales or Rhonchi
Cardiac: Regular Rhythm and S1/S2
GI: Soft, Non tender and Nondistended
Musculoskeletal: No Clubbing, No Cyanosis and No Edema
Neuro: Awake, Alert and Oriented
Psych: Calm
A/P:
Acute pancreatitis:
Tolerating diet
Reviewed MRCP
LFT and lipase trending down
Appreciated GI consult
Surgery consulted and plan for outpatient asif
Workup for hemochromatosis:
Check ferritin level and not elevated
Outpatient genetic testing if warranted
Obesity:
Life style changes modifications
DVT PPx: Lovenox subQ
FULL CODE
Anticipated Discharge: Today
Subjective/Interval History
-
Date of Service: March 04, 2024
no new complaints. Doing well
Objective Data
-
Labs:
Laboratory Results
03/04/24
07:12
WBC 9.7
Hgb 12.4
Hct 37.3
Plt Count 238
Sodium 138
Potassium 3.9
Chloride 104
Carbon Dioxide 24
BUN 6 L
Creatinine 0.5 L
Glucose 89
Calcium 8.8
Total Bilirubin 0.8
AST 102 H
ALT 368 H
Alkaline Phosphatase 150 H
Vital Signs:
Vital Signs
Temp Pulse Resp BP Pulse Ox
98 F 94 16 129/81 96
03/04/24 07:00 03/04/24 07:00 03/04/24 07:00 03/04/24 07:00 03/04/24 07:00
I&O
03/03/24 03/04/24 03/05/24
06:59 06:59 06:59
Intake Total 1350 / 1350 0 / 0
Balance 1350 / 1350 0 / 0
--- NOTE | 2024-03-04 11:21 | CON.GS ---
Addendum entered and electronically signed by Eyal Hedrick MD 03/04/24 12:51:
Patient seen and examined. Agree with assessment plan as documented below.
Patient is a 33 yo F with a PMH of obesity who presents with recurrent mid back discomfort. Paulina states that she initially had discomfort back in November of this year. She presented to the [facility] ER at that time. Workup at that time was
unremarkable and attributed mostly to nephrolithiasis. Since that time she has had intermittent back discomfort on an almost monthly basis. Over the past 24 to 48 hours she has had severe worsening epigastric and back pain. No clear association
with oral intake. No nausea or vomiting. No fevers or chills. She denies any jaundice, pale stools, or tea colored urine. Currently she states that her symptoms are significantly improved and almost resolved.
Gen: NAD
Abd: soft, NT/ND, non-peritoneal
Labs and imaging were reviewed.
Patient is a 33 yo F p/w gallstone pancreatitis
Natural history and pathophysiology of biliary and stone disease was briefly discussed. Current clinical situation was reviewed. Improving both clinically and chemically. MRI demonstrates no evidence of persisting choledocholithiasis. Role of
cholecystectomy was discussed. Recommend cholecystectomy during this admission to prevent future episodes or attacks. Paulina states that she is worried about delayed recovery and impacting Robbie with her . She is also very emotional
about being away from her for the past several days. Discussed option of outpatient cholecystectomy. Risks of recurrent episodes of biliary colic, cholecystitis, or gallstone pancreatitis were reviewed. Patient acknowledges understanding.
Discussed importance of a strict low-fat diet. All questions answered.
-- LFD
-- General Surgery office to reach out on 03/06 to schedule for elective cholecystectomy in the weeks to come
Original Note:
Consultation
-
Date/Time Consultation Requested: 03/03/24 1722
Requesting Provider: Nielson
Reason for Consultation: gallstone pancreatitis
Medical History
-
Chief Complaint: Abdominal pain
History of Present Illness:
33 yo female with a h/o gestational diabetes and recurrent mid back pain radiating into the abdomen since last November once or twice monthly and usually short lived who presents with recurrence of the same which became quite severe causing her to
present through the ED for evaluation. She initially saw a chiropractor without much relief. She does not notice an association with food. She denies nausea or vomiting. She denies fevers or chills. She denies jaundice or acholic stools. Since
presentation, she notes significant improvement in pain but is still mildly sore to the upper abdomen.
Past Medical History
Past Medical History: Other (gestational diabetes)
Past Surgical History: None
Social History
Tobacco: Non-Smoker
Alcohol: None
Drug: None
Family History
Family History: Reviewed & Not Pertinent
Allergies / Home Medications
Allergy/AdvReac Type Severity Reaction Status Date / Time
No Known Drug Allergies Allergy Unknown Verified 03/02/24 16:15
�Medication �Instructions �Recorded �Confirmed �Type
No Meds [No Current Medications] 03/02/24 03/02/24 History
Review of Systems
-
History Source: Patient
All other systems: Negative unless noted
A 10 point review of systems was completed, and was negative except as per HPI.
Physical Exam
Vital Signs
Temp Pulse Resp BP Pulse Ox
98 F 94 16 129/81 96
03/04/24 07:00 03/04/24 07:00 03/04/24 07:00 03/04/24 07:00 03/04/24 07:00
03/03/24 03/04/24 03/05/24
06:59 06:59 06:59
Actual Weight 98.458 kg
Body Mass Index (BMI) 38.5
Lab Results
03/04/24 07:12
03/04/24 07:12
WBC 9.7 10^3/uL (4.8-10.8) 03/04/24 07:12
Hgb 12.4 g/dL (12.0-16.0) 03/04/24 07:12
Hct 37.3 % (37.0-47.0) 03/04/24 07:12
Plt Count 238 10^3/uL (130-400) 03/04/24 07:12
Abs Immat Gran (auto) 0.0 10^3/uL (0-0.05) 03/03/24 05:18
Neutrophils % 81.7 % (42.2-75.2) H 03/03/24 05:18
Physical Exam
General: Well Developed and Well Nourished
HEENT: Moist Mucous Membranes
Respiratory: Non Labored Respirations
GI: Soft, Non Distended and Tender (very mild to upper abdomen)
Skin: Warm and Dry
Neuro: Awake, Alert and AO x 3
Psych: Calm
Assessment / Plan
-
Ms Smith is a 33 yo female who presented with recurrent back pain radiating into her abdomen which acutely worsened. CT concerning or pancreatitis with labs confirming this with lipase >4k on admission. She has a normal bilirubin and no
leukocytosis. MRCP done in follow up with cholelithiasis and no evidence of cholecystitis or choledocholithiasis present but pancreatitis again noted. Her lipase level has droped to 621 now and her pain has nearly resolved. AFVSS. Tolerating clears
thus far. Suspected gallstone mediated pancreatitis.
Would recommend laparoscopic cholecystectomy to prevent recurrence ideally to be done this admission which was discussed with the patient. She is tearful about the timing of surgery being so close to [place] as she has a young child at home and
would like to return for a scheduled surgery after the holiday.
--Advance to low fat diet and continue low fat diet upon discharge until time of surgery
--Will plan outpatient surgery for lap asif in the next 2-3 weeks
--Clear for dc from surgical standpoint for outpatient follow up if tolerating diet without return of pain
[2024-03-04 12:26] VITALS: BP 130/80
--- NOTE | 2024-03-04 13:48 | W.DCSUMMARY ---
Discharge Summary
Discharge Data
Date of Admission: 03/02/24
Date of Discharge: 03/04/24
-
Pending Results: No
Hospital Course
Patient 33 years old history of obesity, came into the hospital abdominal pain and elevated LFTs and found to have acute pancreatitis. GI consulted. Patient had an MRCP that shows severe pancreatitis with extensive cholelithiasis. Patient did
well overall. Pain subsided. IV fluids have been discontinued. She has been tolerating diet. Surgery was consulted and discussed inpatient versus outpatient surgery and patient decided on outpatient cholecystectomy. GI and surgery have cleared
her for discharge. She will be discharged in stable condition today.
Discharge duration: 34 minutes
Discharge Plan
-
Patient Disposition: Home (Routine Discharge)
Discharge Diagnosis/Procedures: Gallstone pancreatitis. Obesity.
Diet: Low Fat
Additional Diets: Stay on a low fat diet until you can have your gallbladder removed
Blood Work: Please PCP to order CBC, CMP within 1 week
Others Tests: follow up with PCP for hemochromatosis testing with family history
Referrals:
provider, PCP [Other] (See less than 1 week)
Eyal Hedrick MD [Active] - None (Please call the office on Wednesday to schedule surgery )
Prescriptions:
Continued
No Current Medications
0
Discharge Orders:
Discharge Patient (As Directed); Ordered 03/04/24
Ordered By: Jerad Nielson
Discharge Date and Time
Discharge Date/Time: 03/04/24 13:58
Print Language: FRENCH
[2024-03-04 21:01] LABS: Transferrin 250 mg/dL (200-360)
[2024-03-06 16:22] LABS: IgG Subclass 4 12 mg/dL (1-123)
[2024-03-06 21:13] LABS: ANA, IgG Reflex to HEp-2 None Detected (None Detected)
== END 2024-03-04 13:58 | disposition home or self-care (01) | DRG 440 ==
LOC: 3 WEST ACU 21:01
PROVIDERS: Nurse Practitioner Adult Health; Physician Assistant; ADMITTING PHYSICIAN Student in an Organized Health Care Education/Training Program; ATTENDING PHYSICIAN Hospitalist; CONSULT PHYSICIAN Specialist; CONSULT PHYSICIAN Surgery; EMERGENCY PHYSICIAN Emergency Medicine
DX: K85.10 Biliary acute pancreatitis without necrosis or infection (principal); K80.20 Calculus of gallbladder without cholecystitis without obstruction; E66.9 Obesity, unspecified; Z68.38 Body mass index [BMI] 38.0-38.9, adult; Z87.442 Personal history of urinary calculi; Z87.891 Personal history of nicotine dependence; Z83.2 Family history of diseases of the blood and blood-forming organs and certain disorders involving the immune mechanism
CPT/HCPCS: 74177; 74181; 80053; 82728; 82787; 83540; 83550; 83690; 83735; 84466; 84478; 84484; 84703; 85025; 85027; 86038; 86140; 93005; 96361; 96374; 96375; 96376; 99285; Q9967

== ENCOUNTER 2024-05-03 06:42 | Day surgery (SDC) | payer BC, SELFPAY ==
[2024-05-03] VITALS (8 sets, daily range): BP systolic 123–146; BP diastolic 80–91; BMI 37.2
[2024-05-03] MEDS: TYLENOL 1000 MG PO (10:52)
[2024-05-03] MEDS: NORMOSOL-R/PLASMALYTE-A 1000 IV (11:00)
[2024-05-03] MEDS: ZOFRAN 4 MG IV (13:51)
[2024-05-03] MEDS: MOTRIN 600 MG PO (15:16)
== END 2024-05-03 15:52 | disposition home or self-care (01) ==
LOC: SDS 06:42
PROVIDERS: ATTENDING PHYSICIAN Surgery
DX: K80.10 Calculus of gallbladder with chronic cholecystitis without obstruction (principal); K85.10 Biliary acute pancreatitis without necrosis or infection; K76.0 Fatty (change of) liver, not elsewhere classified
CPT/HCPCS: 47563; 88304; 74300; 76000; A4300